=== PATIENT | female | born 1940 | race American Indian/Alaskan Native ===

== ENCOUNTER 2020-04-15 11:58 | Emergency (ER) | payer MEDICARE, OTHER ==
--- NOTE | 2020-04-15 12:05 | EDM.PDOC ---
ED [facility] GENERAL MEDICAL PROBLEM - General Chief Complaint: Back Pain or Injury Stated Complaint: ABDOMINAL PAIN RT SIDE Time Seen by Provider: 04/15/20 12:02 Source of Information: Reports: Patient, Old Records History Limitations: Reports: No Limitations - History of Present Illness INITIAL COMMENTS - FREE TEXT/NARRATIVE: 79-year-old female past medical history of diabetes mellitus, GERD, coronary artery disease presenting with back pain. Patient reports a 2-week history of right-sided low back pain radiating to the lateral aspect of the right thigh. Worse with ambulation and movement, better with rest. Described as "aching". Rated as 11 out of 10. No self treatment prior to arrival. No history of trauma or sciatica. Denies any lower extremity or perineal numbness, bowel/bladder retention or incontinence, history of autoimmune disease, fever, immunosuppression, recent steroid use, or history of malignancy. Does have a history of diabetes mellitus. No prior history of AAA. ROS: A 10-point review of systems was negative, except as noted in the HPI (or in the ROS section of this note). Past medical history: Reviewed, no additional pertinent history. Surgical history: Reviewed in system, no additional pertinent history. Social history: Reviewed in system, no additional pertinent history. Family history: Reviewed in system, no additional pertinent history. PHYSICAL EXAM Vital signs reviewed. Nursing notes reviewed. Constitutional: Awake, alert, non-distressed. Head: Normocephalic, atraumatic. Eyes: EOMI, conjunctiva normal, no discharge, no scleral icterus. Ears, Nose, Throat: External ears and nose normal, moist oral mucosa. Cardiovascular: 2+ bilateral DP pulses, capillary refill less than 2 seconds. Bilateral lower extremities are iso-thermic, warm, and well-perfused. Pulmonary: normal work of breathing, no accessory muscle use. Abdomen/GI: Obese, soft, nontender, nondistended, no guarding or rigidity, no masses. No pulsatile mass. Musculoskeletal: No deformities. Moderate tenderness to palpation of the right sacroiliac joint, no tenderness over the thoracic or lumbar spinous processes. No swelling or erythema overlying the back of the spine. Integumentary: Appropriate color for ethnicity, warm, dry, no pallor or jaundice, no rash. Neurologic: Alert, answering questions appropriately, normal speech, no facial droop, moving all extremities well. 5/5 bilateral knee flexion/extension, ankle dorsi/plantar flexion, EHL extension. Sensation intact bilaterally in the great and small toes and inner thighs. Able to stand and walk with mildly antalgic gait, no foot drop. Not able to squat/stand at baseline due to chronic right knee pain. States she is ambulating at baseline after analgesic medications. Psychiatric: Appropriate mood and affect, normal thought process. RIGHT BACK Pain Score (Numeric/FACES): 11 - Related Data Allergies Allergy/AdvReac Type Severity Reaction Status Date / Time acetaminophen Allergy Other Verified 05/11/16 12:49 [From Darvocet-N 100] codeine Allergy Other Verified 05/11/16 12:49 propoxyphene Allergy Other Verified 05/11/16 12:49 [From Darvocet-N 100] Home Meds: Home Meds Amoxicillin/Clavulanate K [Take Home: Amox/Clavulanate 875-12, 2 Tab Pac] 1 packet PO ONETIME 05/11/16 [History] Azithromycin 500 mg PO DAILY 05/11/16 [History] Ondansetron [Zofran ODT] 4 mg PO ONETIME 05/11/16 [History] Blood Sugar Diagnostic [Blood Glucose Test Strip] 1 each TID #1 box 05/13/16 [Rx] Blood-Glucose Meter [Blood Glucose Monitor] 1 each TID #1 kit 05/13/16 [Rx] Lancets [Blood Lancets] 1 each TID #1 box 05/13/16 [Rx] Omeprazole 40 mg PO ACBREAKFAST #20 tablet. 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: Musculoskeletal History: Reports: None Neurological History: Reports: None Psychiatric History: Reports: None Endocrine/Metabolic History: Reports: None Hematologic History: Reports: None Oncologic (Cancer) History: Reports: None - Infectious Disease History Infectious Disease History: Reports: Chicken Pox, Mumps, Rubella - Past Surgical History HEENT Surgical History: Reports: Adenoidectomy, Tonsillectomy GI Surgical History: Reports: Cholecystectomy Musculoskeletal Surgical History: Reports: Other (See Below) Social & Family History - Family History Family Medical History: Noncontributory - Caffeine Use Caffeine Use: Reports: Coffee, Soda - Living Situation & Occupation Living situation: Reports: Occupation: Retired ED ROS GENERAL - Review of Systems Review Of Systems: See Below ED EXAM, GI/ABD - Physical Exam Exam: See Below ED ULTRASOUND - Abdominal Aorta Exam type: focused abdominal ultrasound Findings: normal aorta less than 3mm Impression: normal exam Images Archived: Yes Abdominal Aorta US Text: Indication: back pain. Prox, mid, distal, long measurements <3cm. Course - Vital Signs Text/Narrative:: 79-year-old female presenting with right-sided low back pain. Patient hemodynamically stable, afebrile, well-appearing, looks nontoxic. Differential diagnosis includes but is not limited to: abdominal aortic aneurysm rupture, pulmonary embolism, cauda equina syndrome, epidural abscess, lumbar osteomyelitis, lumbar fracture or dislocation, nephrolithiasis, pyelonephritis, hydronephrosis, musculoskeletal pain, and many others. Bedside gwelo-qv-amja ultrasound shows no evidence of AAA. There is no chest pain or shortness of breath to suggest pulmonary embolism. No low suspicion for cauda equina syndrome given lack of lower extremity weakness, lack of bowel/bladder changes. No midline spinal pain to suggest osteomyelitis, fracture, or bony injury. No urinary symptoms such as dysuria, urinary frequency, no fever, so low suspicion for UTI or pyelonephritis. Moderate tenderness over the right sacroiliac joint and radiation down the right lateral thigh, so I am suspicious for sciatica. The patient is neurovascularly intact and has symmetric strength and motor function in both extremities, there are no red flag symptoms or physical examination findings to warrant emergent MRI. She was treated with ibuprofen and a lidocaine patch and felt much better. She is able to ambulate more easily and is ambulating at her baseline. I have low suspicion for infection, malignancy, or a compressive process involving the spinal cord at this point. I suspect sciatica. We will discharge her home and have her follow-up with her primary medicine clinic in the next week if she is not doing better. We discussed symptomatic ouea-waw-uwwknwz treatment with ibuprofen, lidocaine patches, heating pad, and stretching. Plan: Patient is stable to discharge home with outpatient primary care clinic follow-up. Strict emergency department return precautions were provided, patient indicated understanding. All questions were answered prior to departure. Discharged in good condition. Last Recorded V/S: Last Vital Signs Temp 36.1 C 04/15/20 12:26 Pulse 66 04/15/20 12:29 Resp 15 04/15/20 12:26 BP 183/66 H 04/15/20 12:29 Pulse Ox 96 04/15/20 12:26 - Orders/Labs/Meds Meds: Medications Discontinued Medications Generic Name Dose Route Start Last Admin Trade Name Sara PRN Reason Stop Dose Admin Ibuprofen 400 mg 04/15/20 12:35 04/15/20 12:53 Motrin PO 04/15/20 12:36 400 mg ONETIME ONE Administration Lidocaine 700 mg 04/15/20 12:35 04/15/20 12:54 Lidoderm 5% TOP 04/15/20 12:36 700 mg ONETIME ONE Administration Departure - Departure Time of Disposition: 13:31 Disposition: Home, Self-Care 01 Condition: Good Clinical Impression: Right-sided low back pain with right-sided sciatica Qualifiers: Chronicity: acute Qualified Code(s): M54.41 - Lumbago with sciatica, right side - Discharge Information *PRESCRIPTION DRUG MONITORING PROGRAM REVIEWED*: Not Applicable *COPY OF PRESCRIPTION DRUG MONITORING REPORT IN PATIENT MALGORZATA: Not Applicable Instructions: Sciatica Referrals: [facility] - Family Practice [Provider Group] - 1 Week (Follow-up with your primary medical clinic or our family medicine clinic in 1 week if you are not feeling better.) Forms: ED Department Discharge Additional Instructions: You were seen in the emergency department for low back pain. I suspect that your symptoms are due to sciatica, or a herniated disc in your low back that is pushing on some of the nerves that go to your right leg. There is no indication for emergency MRI today. Treatment involves addressing your pain, heating pad, and following closely with your primary care clinic. I recommend [id number] ibuprofen, 400 mg every 6 hours. You can take this safely for up to a week. I would not recommend taking this for a long time because it can be harmful to your kidneys, given that you are a diabetic. I also recommend tuhm-syv-jrmhmml lidocaine patches, these are available without a prescription. I also recommend a heating pad. I would follow-up with your primary medicine clinic in about a week if you are not doing better. Warning signs to come back to the ER include worsening or severe back pain, severe lower abdominal pain, numbness or weakness of your leg, numbness around your buttocks or genitals, difficulty controlling your bowels or bladder, fever of 100.4 higher, chest pain, trouble breathing, or any other new or concerning symptoms. Please return the emergency department immediately if your symptoms worsen or if you feel worse. Thank you for choosing the [facility] emergency department in [place] for your medical needs today. It was a pleasure caring for you. The following information is given to patients seen in the emergency department who are being discharged. This information is to outline your options for follow-up care. We provide all patients seen in our emergency department with a follow-up referral. The need for follow-up, as well as the timing and circumstances, are variable depending upon the specifics of your emergency department visit. If you don't have a primary care physician on staff, we will provide you with a referral. We always advise you to contact your personal physician following an emergency department visit to inform them of the circumstance of the visit and for follow-up with them and/or the need for any referrals to a consulting specialist. The emergency department will also refer you to a specialist when appropriate. This referral assures that you have the opportunity for follow-up care with a specialist. All of these measure are taken in an effort to provide you with optimal care, which includes your follow-up. Under all circumstances we always encourage you to contact your private physician who remains a resource for coordinating your care. When calling for follow-up care, please make the office aware that this follow-up is from your recent emergency room visit. If for any reason you are refused follow-up, please contact the [facility] Emergency Department at and asked to speak to the emergency department charge nurse. If you do not have a primary care physician that is caring for you, you can contact these clinics below to set up an appointment to establish care: [facility] - Primary Care [address] [place] [id number] [address] Sepsis Event Note (ED) - Focused Exam Vital Signs: Vital Signs Temp Pulse Resp BP BP Pulse Ox 04/15/20 12:29 66 183/66 H 04/15/20 12:26 36.1 C 69 15 226/78 H 96
[2020-04-15] MEDS ORDERED: Ibuprofen 400 MG Tab PO ONE (12:35)
[2020-04-15] MEDS ORDERED: Lidocaine 5% 700 MG Patch TOP ONE (12:35)
[2020-04-15 13:54] VITALS: BP 162/59; PULSE 57
== END 2020-04-15 13:50 | disposition home or self-care (01) ==
LOC: MW.ED 11:58
DX: M54.41 Lumbago with sciatica, right side (principal); I10 Essential (primary) hypertension; I25.2 Old myocardial infarction; Z90.49 Acquired absence of other specified parts of digestive tract; Z79.84 Long term (current) use of oral hypoglycemic drugs; Z88.5 Allergy status to narcotic agent; Z88.6 Allergy status to analgesic agent; Z79.899 Other long term (current) drug therapy
CPT/HCPCS: 99283; A9270